=== PATIENT | female | born 1960 | race Caucasian/White ===

== ENCOUNTER 2018-01-19 08:35 | Day surgery (SDC) | payer OTHER ==
[~2018-01-19] VITALS: Ht 165.1 cm; Wt 86.2 kg
[~2018-01-19 08:35] MED LIST: ALBU6.7H3 IH; ASPI-1073 PO; ATOR40TA70 PO; BUPR200T PO; CLOP75TA33 PO; ENAL10TA PO; FURO40TA5 PO; ISOS30TA PO; LACTATED RINGERS 1,000 ML IV SCH; LORA-249 PO; METO25TA6 PO; NITR0.4T SL; TIOT18CA3 IH
[2018-01-19] MEDS ORDERED: ONDANSETRON HCL 4MG/2ML VIAL IV PRN (09:00)
[2018-01-19] MEDS ORDERED: FENTANYL CITRATE/PF 50MCG/ML 2ML VIAL IV PRN (09:00)
[2018-01-19] MEDS ORDERED: MIDAZOLAM HCL 2 MG/2 ML VIAL ONE (09:12)
[2018-01-19] MEDS ORDERED: PROPOFOL 200MG/20ML VIAL IV ONE ×2 (09:14→09:15)
[2018-01-19] MEDS ORDERED: LIDOCAINE HCL/PF 1% 10 MG/ML 5ML VIAL ONE (09:15)
[2018-01-19] MEDS ORDERED: GELATIN SPONGE,ABSORBABLE 12-7MM SPONGE ONE (09:15)
[2018-01-19] MEDS ORDERED: HYDROCODONE/ACETAMINOPHEN 5/325MG TABLET PO PRN (09:15)
[2018-01-19] MEDS ORDERED: BACITRACIN ZINC 15GM TUBE TOP ONE (09:15)
[2018-01-19] MEDS ORDERED: THROMBIN (BOVINE) 5000 UNITS/VIAL TOP ONE (09:16)
[2018-01-19] MEDS ORDERED: BACITRACIN 50,000 UNITS/VIAL ONE (09:16)
[2018-01-19] MEDS ORDERED: NORMAL SALINE 0.9% 10 ML SYR ONE (09:16)
[2018-01-19] MEDS ORDERED: BUPIVACAINE HCL/PF 0.5% (5MG/ML) 10ML ONE (09:16)
[2018-01-19 09:24] LABS: BASOPHILS % 0.9 % (0.0-2.0); EOSINOPHILS % 6.8 % (0.0-5.0); HEMATOCRIT. 45.2 % (36.0-48.0); LYMPHOCYTES % 19.8 % (20.0-50.0); MEAN CORPUSCULAR HEMOGLOBIN 28.9 pg (28.0-32.0); MEAN CORPUSCULAR VOLUME 87.5 fL (81.0-99.0); MEAN PLATELET VOLUME 8.5 fl (7.4-10.4); NEUTROPHILS % 64.5 % (40.0-76.0); PLATELET 291 x1000/uL (130-400); RED BLOOD CELL COUNT 5.17 mill/uL (4.2-5.4); RED CELL DISTRIBUTION WIDTH 14.6 % (11.6-14.6)
[2018-01-19 09:39] LABS: PARTIAL THROMBOPLASTIN TIME 24.8 sec (23.4-31.0); PROTHROMBIN TIME 10.5 sec (9.4-11.6)
[2018-01-19] MEDS ORDERED: METO-539 PO (09:41)
[2018-01-19] MEDS ORDERED: FURO20TA4 PO (09:41)
[2018-01-19] MEDS ORDERED: ATOR-2 PO (09:41)
[2018-01-19] MEDS ORDERED: ISOS60TA4 PO (09:42)
[2018-01-19] MEDS ORDERED: CEFAZOLIN SODIUM 1000MG/VIAL ONE (09:43)
[2018-01-19 09:46] LABS: CHLORIDE 108 mEq/L (98-107)
[2018-01-19] MEDS ORDERED: SKIN ADHESIVE 0.7 GM EA TOP ONE (10:11)
== END 2018-01-19 12:15 | disposition home or self-care (01) ==
LOC: OR 08:35
PROVIDERS: ATTEND Surgery Vascular Surgery
DX: Z45.2 Encounter for adjustment and management of vascular access device (principal); I11.0 Hypertensive heart disease with heart failure; I25.10 Atherosclerotic heart disease of native coronary artery without angina pectoris; F32.9 Major depressive disorder, single episode, unspecified; F41.9 Anxiety disorder, unspecified; I50.20 Unspecified systolic (congestive) heart failure; I42.0 Dilated cardiomyopathy; Z87.891 Personal history of nicotine dependence; Z98.51 Tubal ligation status; Z98.890 Other specified postprocedural states; Z95.5 Presence of coronary angioplasty implant and graft; Z79.82 Long term (current) use of aspirin
CPT/HCPCS: 0268T; 36415; 71045; 80048; 85025; 85610; 85730; 93005; A4216; G0168; J0690; J2250; J3010; J3490; J7120; J2704